=== PATIENT | female | born 1945 | race Caucasian/White ===

== ENCOUNTER → 2019-07-26 12:45 | Outpatient (CLI) | payer OTHER, SELFPAY ==
--- NOTE | 2019-07-26 12:50 | DI.MRI.S_ITS ---
PROCEDURE: MR LUMBAR SPINE WO CON INDICATIONS: Neurogenic claudication TECHNIQUE: Noncontrast sagittal T1 spin echo and T2 fast echo, sagittal STIR, axial T1 and T2 fast spin echo through the lumbar spine. In cases with scoliosis, additional coronal T2 fast spin echo may be performed. COMPARISON: [facility], CR, XR LUMBAR SPINE MIN 4V, 07/26/2019, 13:27. FINDINGS: Image quality: Excellent. Alignment and Curvature: 5 lumbar type vertebral bodies are present by plain film. There is mild, grade 1 anterolisthesis of L3 on L4 and L4 on L5. Bone Marrow: Marrow is of normal overall signal. No acute vertebral body compression fractures. Mild reactive signal within the endplates adjacent to the the L1-L2, L2-L3, L3-L4, and L4-L5 intervertebral discs. Spinal Cord: Conus medullaris terminates at the upper L2 level. Visualized cord demonstrates normal signal and size. Paraspinous Soft Tissues: No paravertebral masses. L1-L2: Moderate disc desiccation. Mild diffuse disc bulge. Mild facet and ligamentum hypertrophy. Mild epidural lipomatosis. Mild canal stenosis. Mild bilateral foraminal stenosis. L2-L3: Moderate disc desiccation. Mild diffuse disc bulge. Moderate facet and ligamentum flavum hypertrophy. Mild epidural lipomatosis. Severe canal stenosis. Mild bilateral foraminal stenosis. L3-L4: Mild disc height loss. Moderate disc desiccation. Mild diffuse disc bulge. Severe bilateral facet hypertrophy. Moderate ligament flavum mammography. Severe canal stenosis. Severe left and moderate right foraminal stenosis. Left L3 nerve root compression. L4-L5: Moderate disc height loss and desiccation. Mild diffuse disc bulge. Severe bilateral facet hypertrophy. Moderate epidural lipomatosis. Moderate canal stenosis. Moderate bilateral foraminal stenosis. L5-S1: Moderate disc height loss and desiccation. Moderate bilateral facet hypertrophy. Mild canal stenosis. Mild bilateral foraminal stenosis. IMPRESSION: 1. Multilevel degenerative disc and facet disease, as well as ligamentum flavum hypertrophy and epidural lipomatosis. 2. Multilevel canal stenoses, worst at L2-L3 and L3-L4, where there are severe canal stenoses present. Moderate canal stenosis at L4-L5. 3. Multilevel foraminal stenoses, worst on the left at L3-L4 where there is severe foraminal stenosis with associated L3 nerve root compression. Recommend correlation with clinical symptoms to ascertain relevance of this finding. Dictated by: Dominic Joseph M.D. on 07/26/2019 at 13:58 Approved by: Dominic Joseph M.D. on 07/26/2019 at 14:02
--- NOTE | 2019-07-26 12:50 | DI.RAD.S_ITS ---
PROCEDURE: XR LUMBAR SPINE MIN 4V INDICATIONS: Neurogenic claudication TECHNIQUE: 5 views of the lumbar spine were acquired. COMPARISON: None. FINDINGS: Bones: No fracture or focal osseous destruction. Dextrocurvature is noted. Multilevel degenerative endplate sclerosis and spurring. Diffuse facet arthropathy. Grade 1 anterolisthesis of L3 on L4 and L4 on L5. Diffuse moderate lumbar disc space narrowing Soft tissues: Overlying bowel gas pattern is normal. Scattered vascular calcifications seen in the aorta. Right upper quadrant surgical clips. Oblique images: No pars defects. IMPRESSION: Diffuse lumbar spondylosis and facet disease. Grade 1 anterolisthesis of L3 on L4 and L4-L5. Dextroscoliosis Dictated by: Boby Trejo M.D. on 07/26/2019 at 15:43 Approved by: Boby Trejo M.D. on 07/26/2019 at 15:45
== END ==
PROVIDERS: PCP Family Medicine; Visit Provider Physical Medicine & Rehabilitation
DX: M48.062 Spinal stenosis, lumbar region with neurogenic claudication (principal); M48.07 Spinal stenosis, lumbosacral region; M51.16 Intervertebral disc disorders with radiculopathy, lumbar region; M43.16 Spondylolisthesis, lumbar region; M41.9 Scoliosis, unspecified; E88.2 Lipomatosis, not elsewhere classified
CPT/HCPCS: 72110; 72148

== ENCOUNTER → 2023-02-22 11:33 | Outpatient (CLI) | payer OTHER, SELFPAY ==
--- NOTE | 2023-02-22 11:34 | DI.RAD.S_ITS ---
PROCEDURE: XR LUMBAR SPINE MIN 4V INDICATIONS: LOW BACK PAIN TECHNIQUE: Five views of the lumbar spine with oblique views. COMPARISON: [facility], CR, XR LUMBAR SPINE MIN 4V, 07/26/2019, 13:27. FINDINGS: Bones: Slight rightward spinal curvature. Partially seen lumbosacral and hip degenerative changes. Oblique views degraded by overlapping bowel gas vascular calcifications and osteophytes. Multilevel spondylolisthesis, about 9 millimeters of L3 on L4 and 7 millimeters of L4 on L5. These findings were seen in 2020. Moderate spondylotic changes, with disc space height loss and facet arthropathy also present. Soft tissues: Significant vascular calcifications. Cholecystectomy clips. IMPRESSION: Moderate degenerative changes and multilevel spondylolisthesis, also seen in 2020. If there is high concern for further derangement, consider MRI evaluation. Dictated by: Roman Walker M.D. on 02/22/2023 at 14:21 Approved by: Roman Walker M.D. on 02/22/2023 at 14:24
== END ==
PROVIDERS: PCP Nurse Practitioner; Referring Provider Anesthesiology; Visit Provider Anesthesiology
DX: M47.26 Other spondylosis with radiculopathy, lumbar region (principal); M48.062 Spinal stenosis, lumbar region with neurogenic claudication; M43.16 Spondylolisthesis, lumbar region
CPT/HCPCS: 72110; 99214

== ENCOUNTER → 2023-03-15 14:44 | Outpatient (CLI) | payer OTHER, SELFPAY ==
--- NOTE | 2023-03-15 | DI.MRI.S_ITS ---
PROCEDURE: MR LUMBAR SPINE WO CON INDICATIONS: Radiculopathy, lumbar region TECHNIQUE: Noncontrast sagittal T1 spin echo and T2 fast echo, sagittal STIR, and T2 fast spin echo through the lumbar spine. In cases with scoliosis, additional coronal T2 fast spin echo may be performed. COMPARISON: , MR, MR LUMBAR SPINE WO CON, 07/26/2019, 12:55. FINDINGS: Image quality: Excellent. Alignment and Curvature: Redemonstration grade 1 anterolisthesis of L3 on L4 and L4 on L5. Bone Marrow: Marrow is of normal overall signal. No acute vertebral body compression fractures. Spinal Cord: Conus medullaris terminates at the L2 level. Visualized cord demonstrates normal signal and size. Paraspinous Soft Tissues: No paravertebral masses. Left renal cysts. T12-L1: Disc desiccation and small posterior disc bulge. No central canal or neural foraminal stenosis. L1-L2: Disc desiccation and height loss with small posterior disc bulge. Facet arthropathy and thickening of ligamentum flavum. Stable mild central canal stenosis. Stable mild bilateral neural foraminal stenosis. L2-L3: Disc desiccation height loss with posterior disc bulge. Facet arthropathy and thickening of the ligamentum flavum. Epidural lipomatosis. Stable severe central canal stenosis. Stable mild bilateral neural foraminal stenosis. L3-L4: Disc desiccation height loss with posterior disc bulge. Facet arthropathy and thickening of ligamentum flavum. Stable severe central canal stenosis. Stable severe left and moderate right neural foraminal stenosis. L4-L5: Severe disc desiccation height loss. Mild diffuse disc bulge. Facet arthropathy. Epidural lipomatosis. Stable mild to moderate central canal stenosis. Stable moderate bilateral neural foraminal stenosis. L5-S1: No central canal or neural foraminal stenosis. IMPRESSION: 1. Multilevel degenerative changes of the lumbar spine are not significantly changed compared to prior. 2. Stable severe central canal stenosis at L2-L3 and L3-L4. 3. Multilevel neural foraminal stenosis, worse at L3-L4 on the left with severe foraminal stenosis. See above for additional levels of neural foraminal stenosis. Dictated by: Morro Samuel M.D. on 03/15/2023 at 17:30 Approved by: Morro Samuel M.D. on 03/15/2023 at 17:36
== END ==
PROVIDERS: PCP Nurse Practitioner; Referring Provider Anesthesiology; Visit Provider Anesthesiology
DX: M48.062 Spinal stenosis, lumbar region with neurogenic claudication (principal); M54.16 Radiculopathy, lumbar region
CPT/HCPCS: 72148

== ENCOUNTER 2023-05-25 12:11 | Outpatient (CLI) | payer OTHER, SELFPAY ==
[2023-05-25] VITALS (8 sets, daily range): BP systolic 169–204; BP diastolic 74–84; PULSE 86–93; RESP 13–22; TEMP 36.8; O2SAT 93–96
--- NOTE | 2023-05-25 12:12 | DI.RAD.S_ITS ---
PROCEDURE: PAIN L INTERLAMINAR/CAUDAL INJ INDICATIONS: RADICULOPATHY COMPARISON: None. FINDINGS: Fluoroscopic spot filming was performed to verify placement of spinal needles for caudal injection. Appropriate location(s) of the needle tip(s) was confirmed by injection of iodinated contrast. IMPRESSION: Intraoperative fluoroscopic images were performed. Dictated by: Dann Zheng M.D. on 05/25/2023 at 15:00 Approved by: Dann Zheng M.D. on 05/25/2023 at 15:01
[2023-05-25] MEDS: MIDAZOLAM 2 MG/2 ML VIAL 1 MG IV (13:13)
[2023-05-25] MEDS: DEXAMETHASONE 10 MG/ML VIAL INJ (13:19)
[2023-05-25] MEDS: iopamidoL 15 ML VIAL 3 ML INJ (13:19)
--- NOTE | 2023-05-25 14:46 | P.PCN_ITS ---
Date/Time/Diagnoses Date of procedure: 05/25/23 Time of procedure: 13:00 Procedure Notes Physician: Dallas Grande Total Fluoroscopy time (seconds): 8 Total sedation minutes: 10 Procedure in detail & Post-procedure care: Caudal Epidural Steroid Injection Indications: Corie is presenting for treatment of lumbar radiculopathy with low back and leg pain. Preoperative diagnosis: Lumbar radiculopathy Postoperative diagnosis: Same Focused Examination: Ax3 Mood and affect are normal Vital Signs: VSS ASA: 2 Consent: Following review of allergies and potential side effects/complications, including, but not necessarily limited to, infection, allergic reaction, local tissue breakdown, stroke, temporary or permanent nerve injury, paralysis, and possible , the patient indicated that they understood and agreed to proceed.? An informed consent document was signed by the patient, witnessed by a nurse and placed in the patient's chart.? Additionally, other treatment options including medications and physical therapy were reviewed with the patient. All questions were answered. Site was then marked. Anesthesia: After review of previous anesthetic history and IV conscious sedation, the patient was deemed safe to proceed with today's procedure with IV conscious sedation. IV sedation was accomplished with midazolam 1 mg administered by the RN after order by Dr. Grande. Sedation was titrated to p atient comfort during the course of the procedure. Patient remained responsive to all verbal commands. Position: Prone Monitoring: NIBP, Pulse oximetry, 3 lead EKG Needle used: 25 gauge, 3.5 in spinal needle Contrast: Isovue 300-M 2mL Injectate: Dexamethasone 10 mg with 1% lidocaine 2 mL and normal saline 2 mL Technique: The skin was prepped with chloraprep and then draped in a sterile fashion. Time out was performed as per protocol. Oxygen applied via NC. The entry point for entering/approaching the epidural space by a caudal approach through the sacral hiatus was identified. Skin and subcutaneous structures of the needle entry site was then infiltrated with 3 mL of lidocaine 1%. Under AP and lateral control, the needle was guided through the sacral hiatus to the S3 level. Contrast was then injected and the spread was consistent with the epidural space. There was no evidence for intravascular or intrathecal uptake. After negative aspiration, the above-mentioned injectate was then slowly administered and the needle withdrawn. The patient expressed no unusual discomfort or paresthesias during needle positioning or injection. Band-Aids applied to injection sites. EBL: less than 1 ml Complications: None Post Procedure: Patient was taken to the recovery and monitored. The patient was provided a Pain Log to continue to record the patient's response to the target- specific procedure prior to the patient's follow-up visit with the referring physician. Patient was stable upon discharge. Detailed post procedure instructions were provided. Patient was asked to call in the event of worsening pain, fever, weakness, numbness or bladder or bowel incontinence.
== END 2023-05-25 13:48 | disposition home or self-care (01) ==
LOC: RAD 12:11
PROVIDERS: PCP Nurse Practitioner; Referring Provider Anesthesiology; Visit Provider Anesthesiology
DX: M54.16 Radiculopathy, lumbar region (principal)
CPT/HCPCS: 62323; 82962; 99152; J1100; J2250

== ENCOUNTER 2023-10-12 09:44 | Outpatient (CLI) | payer OTHER, SELFPAY ==
[2023-10-12] VITALS (8 sets, daily range): BP systolic 156–198; BP diastolic 73–84; PULSE 72–88; RESP 11–22; TEMP 36.7; O2SAT 95–97
--- NOTE | 2023-10-12 09:47 | DI.RAD.S_ITS ---
PROCEDURE: PAIN L INTERLAMINAR/CAUDAL INJ INDICATIONS: radiculopathy COMPARISON: Located [facility], XA, PAIN L INTERLAMINAR/CAUDAL INJ, 05/25/2023, 14:16. FINDINGS: Fluoroscopic spot filming was performed to verify placement of spinal needles at the L4-5 level(s), as labeled on the films. Appropriate location(s) of the needle tip(s) was confirmed by injection of iodinated contrast. IMPRESSION: Intraoperative fluoroscopy for epidural steroid injection. Dictated by: Sandy Cage M.D. on 10/12/2023 at 17:31 Approved by: Sandy Cage M.D. on 10/12/2023 at 17:31
[2023-10-12] MEDS: MIDAZOLAM 2 MG/2 ML VIAL 1 MG IV (10:27)
[2023-10-12] MEDS: DEXAMETHASONE 10 MG/ML VIAL INJ (10:35)
[2023-10-12] MEDS: iopamidoL 15 ML VIAL 3 ML INJ (10:35)
--- NOTE | 2023-10-12 11:13 | P.PCN_ITS ---
Date/Time/Diagnoses Date of procedure: 10/12/23 Time of procedure: 10:30 Procedure Notes Physician: Dallas Grande Total Fluoroscopy time (seconds): 26 Total sedation minutes: 21 Procedure in detail & Post-procedure care: L4-5 Interlaminar Epidural Steroid Injection Indications: Corie is presenting for treatment of lumbar radiculopathy with low back and leg pain. Preoperative diagnosis: Lumbar radiculopathy Postoperative diagnosis: Same Focused Examination: Ax3 Mood and affect are normal Vital Signs: VSS ASA: 3 Consent: Following review of allergies and potential side effects/complications, including, but not necessarily limited to, infection, allergic reaction, local tissue breakdown, stroke, temporary or permanent nerve injury, paralysis, and possible , the patient indicated that they understood and agreed to proceed.? An informed consent document was signed by the patient, witnessed by a nurse and placed in the patient's chart.? Additionally, other treatment options including medications and physical therapy were reviewed with the patient. All questions were answered. Site was then marked. Anesthesia: After review of previous anesthetic history and IV conscious sedation, the patient was deemed safe to proceed with today's procedure with IV conscious sedation. IV sedation was accomplished with midazolam 1 mg administered by the RN after order by Dr. Grande. Sedation was titrated to patient comfort during the course of the procedure. Patient remained responsive to all verbal commands. Position: Prone Monitoring: NIBP, Pulse oximetry, 3 lead EKG Needle used: 18 G 3.5? Tuohy Contrast: Isovue 300M Injectate: Dexamethasone 10 mg with 1% lidocaine 2 mL Technique: The skin was prepped with chloraprep and then draped in a sterile fashion. Time out was performed as per protocol. Oxygen applied via NC. Skin and subcutaneous structures of the needle entry site was then infiltrated with 3 mL of lidocaine 1%. Under AP, lateral and contralateral oblique fluoroscopic control, the Tuohy needle was guided into the L3-4 epidural space. The space was accessed with loss of resistance technique. Isovue 300M was then injected and the spread was consistent with the epidural space. There was no evidence for intravascular or intrathecal uptake. The patient expressed discomfort with injection at this level. Needle was removed and decision made to proceed with the L4-5 level. Skin and subcutaneous structures of the needle entry site was then infiltrated with 3 mL of lidocaine 1%. Under AP, lateral and contralateral oblique fluoroscopic control, the Tuohy needle was guided into the L4-5 epidural space. The space was accessed with loss of resistance technique. Isovue 300M was then injected and the spread was consistent with the epidural space. There was no evidence for intravascular or intrathecal uptake. After negative aspiration, the above-mentioned injectate was then slowly administered and the needle withdrawn. The patient expressed no unusual discomfort or paresthesias during the injection.Band-Aids applied to injection sites. EBL: less than 1 ml Complications: None Post Procedure: Patient was taken to the recovery and monitored. The patient was provided a Pain Log to continue to record the patient's response to the target- specific procedure prior to the patient's follow-up visit with the referring physician. Patient was stable upon discharge. Detailed post procedure instructions were provided. Patient was asked to call in the event of worsening pain, fever, weakness, numbness or bladder or bowel incontinence.
== END 2023-10-12 11:05 | disposition home or self-care (01) ==
LOC: RAD 09:45
PROVIDERS: PCP Nurse Practitioner; Referring Provider Anesthesiology; Visit Provider Anesthesiology
DX: M54.16 Radiculopathy, lumbar region (principal)
CPT/HCPCS: 62323; 82962; 99152; J1100; J2250